=== PATIENT | male | born 1970 | race African-American/Black ===

== ENCOUNTER 2020-12-19 10:00 | Outpatient (RCR) | payer OTHER, SELFPAY ==
--- NOTE | 2020-11-20 08:57 | PTOPEVAL ---
Thank you for referring Bear Rodríguez to [facility] [place].? The patient is scheduled to be seen for therapy? 2x/week for 3 weeks. Please review, sign, date and return this plan of care BEHZAD. I agree with and certify that the following plan of care is medically necessary. Referring Physician Date Attending Provider: Ashley Morrow *PT Outpatient Evaluation Start: 11/20/20 07:33 Freq: Status: Active Protocol: Document 11/20/20 07:35 CAP (Rec: 11/20/20 08:49 CAP [id number]) Therapy Assessment Status Assessment Status Assessment Status Evaluation Outpatient Past Medical History Past Medical History Source of Past Medical History Patient Cardiovascular History Hx Hypercholesterolemia Yes Hx Hypertension Yes Respiratory History Hx Sleep Apnea Yes: CPAP Hx Other Respiratory Disorders Yes: COVID- 10/22/20 Endocrine History Hx Diabetes Yes Evaluation Information Problem Diagnosis COVID Onset 10/22/20 Additional Evaluation Detail Pt is to RTW on 12/02/20 Subjective Information Pt was DX with COVID on Text:As Reported By Patient/ . He did not require Family hospitalization. He reports he has lost~30#. He c/o significant fatigue since the DX. He is limited with household activities due to fatigue. He is slowly regaining his appitite. 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 He has 2 flights of steps to reach his home. C/ O SOB with steps especially with carrying objects. He reports difficulty getting to sleep and staying asleep. He uses a CPAP requiring him to sleep on his back. 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 He currently is not working. His work has to be able to lift pts, manage and set-up equipment. He is on his feet for the full shift. He cancelled his gym membership in May. Prior to January, he was going to the gym 2x/wk for cardio activities. He will return to the gym once
--- NOTE | 2020-12-19 10:41 | PTOPEVAL ---
Thank you for referring Bear Rodríguez to [facility].? Pt has been seen for 7 therapy visits to address limitations related to COVID. He demonstrates improved strength, endurance and tolerance with work or home task. He has reached maximal potential with skilled therapy services at this time. DC skilled PT services. Please review, sign, date and return this plan of care BEHZAD. I agree with and certify that the following plan of care is medically necessary. Referring Physician Date Attending Provider: Ashley Morrow Referring Provider: AminataPT Outpatient Evaluation Start: 11/20/20 07:33 Freq: Status: Active Protocol: Document 12/19/20 10:02 CAP (Rec: 12/19/20 10:34 CAP [id number]) Therapy Assessment Status Assessment Status Assessment Status Discharge Outpatient Past Medical History Past Medical History Source of Past Medical History Patient Cardiovascular History Hx Hypercholesterolemia Yes Hx Hypertension Yes Respiratory History Hx Sleep Apnea Yes: CPAP Hx Other Respiratory Disorders Yes: COVID- 10/22/20 Endocrine History Hx Diabetes Yes Evaluation Information Problem Diagnosis COVID Onset 10/22/20 Additional Evaluation Detail Pt is to RTW on 12/02/20 Pt was DX with COVID on . He did not require hospitalization. 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 Subjective Information He has RTW for 10 hr days, but Query Text:As Reported By Patient/ no always consistently 10 hr Family day. He does report improved endurance with daily activities. He reports improved ability to perform household activities before fatigue. He can perform steps at work without limitations. His denies problems with lift pts, manage and set-up equipment. Pain Assessment Timing of Pain Assessment Timing of Pain Assessment Re-assessment Self Report Self Report Pain Level 0 Pain Score Pain Score 0: Self Report Lower Extremity Muscle Strength Testing General Lower Extremity Strength Gross Lower Extremity Strength hip flex, knee ext and flex, ankle DF: 5/5 hip ext: 5/5 hip abd: 3+/5 left and 4-/5 right Upper Extremity Muscle Strength Testing General Upper Extremity Strength Gross Upper Extremity Strength Comments grossly 5/5 imtiaz
== END 2020-12-19 11:04 | disposition home or self-care (01) ==
LOC: ANHPT 10:00
DX: R53.1 Weakness (principal)
CPT/HCPCS: 97110; 97162; 97530

== ENCOUNTER 2020-12-21 14:17 | Emergency (ER) | payer OTHER, SELFPAY ==
[2020-12-21 14:22] VITALS: BP 144/84; PULSE 94; RESP 16; TEMP 36.8; O2SAT 98; O2SAT 99
--- NOTE | 2020-12-21 14:36 | ED.SKABFB ---
HPI - Skin/Abscess/Foreign Bdy General Chief complaint: Extremity Problem,Nontraumatic Stated complaint: L TOE DISCOLORED Time Seen by Provider: 12/21/20 14:30 Source: patient and RN notes reviewed Mode of arrival: ambulatory Limitations: no limitations History of Present Illness HPI narrative: Patient presents today complaining of a discoloration to his left first toe. Denies any known injury or trauma, however, he states he does have significant diabetic neuropathy in his feet. He noted the discoloration this morning. States he did trim his toenail a few days ago and does not know if this contributed to the discoloration. He does report some mild pain when the area is touched. He has not tried any [id number] treatment prior to arrival. MD complaint: discoloration Related Data Home Medications Medication Instructions Recorded Confirmed atorvastatin 12/21/20 glipizide mg PO 12/21/20 lisinopril 12/21/20 metformin mg 12/21/20 Allergies Allergy/AdvReac Type Severity Reaction Status Date / Time No Known Allergies Allergy Unverified 12/21/20 14:22 Review of Systems Review of Systems: Narrative: CONSTITUTIONAL: Denies body aches, fever, chills, or sweats. EYES: Denies visual changes, redness, or discharge. ENT: Denies rhinorrhea, congestion, sore throat, or otalgia. CARDIOVASCULAR: Denies chest pain, palpitations, or edema. RESPIRATORY: Denies cough or dyspnea. GASTROINTESTINAL: Denies abdominal pain, nausea, vomiting, or diarrhea. GENITOURINARY: Denies dysuria or hematuria. SKIN: Denies rash, itching, or wounds.+ Discoloration of the left first toenail MUSCULOSKELETAL: Denies back pain, joint pain, or myalgia. NEUROLOGIC: Denies headache, numbness, tingling, or weakness. PSYCH: Denies depression or anxiety. [facility] Past Medical History Medical History (Updated 12/21/20 @ 15:22 by Nanette Bhatia, [employer] CLE[employer]ER MECH[employer]IC, ) Diabetes Diabetic neuropathy Hypercholesterolemia Hypertension Sleep apnea Comments At time of signature, I have reviewed and agree with nursing past medical, surgical, social and family history unless otherwise noted. Please see nursing chart for further information. There is no relevant family history pertinent to the presenting complaint Exam Narrative: Exam Narrative: GENERAL: Well-appearing, well-nourished, and in no acute distress. HEAD: Normocephalic, atraumatic. EYES: EOMI. No redness or drainage. Conjunctivae normal. ENT: Mucous membranes pink and moist. NECK: Normal AROM. CHEST: No respiratory distress. EXTREMITIES: Left first toe: Lateral half of the toenail involves a subungual hematoma. Mildly tender to palpation. No surrounding erythema or edema. Distal sensation diminished, but no different than baseline. Capillary refill normal. Pedal pulse normal. Full range of motion of the toe. SKIN: Warm, dry, no rash. Capillary refill normal. Normal skin turgor. NEURO: No focal deficits. Alert and oriented x3. Gait steady. PSYCH: Normal affect. No signs of depression or anxiety. Course Vital Signs Vital signs: Vital Signs Temperature 98.3 F 12/21/20 14:22 Pulse Rate 94 12/21/20 14:22 Respiratory Rate 16 12/21/20 14:22 Blood Pressure 144/84 H 12/21/20 14:22 Pulse Oximetry 98 12/21/20 14:22 Temperature 98.3 F 12/21/20 14:22 Pulse Rate 94 12/21/20 14:22 Respiratory Rate 16 12/21/20 14:22 Blood Pressure 144/84 H 12/21/20 14:22 Pulse Oximetry 99 12/21/20 14:22 Reviewed. Pt has been instructed to follow up with his PCP regarding his elevated blood pressure today. Procedures Nail Trephination Nail Trephination #1: Nail Trephination Date: 12/21/20 Nail Trephination Time: 14:39 Time out: Yes Location (toes): first digit (Left) Sterile prep: betadine Method of drainage: nail cautery Procedure successful: Yes Patient tolerated procedure: well Nail Trephination Comment: Moderate am
== END 2020-12-21 15:01 | disposition home or self-care (01) ==
PROVIDERS: Emergency Provider Nurse Practitioner
DX: S90.212A Contusion of left great toe with damage to nail, initial encounter (principal); X58.XXXA Exposure to other specified factors, initial encounter; E11.42 Type 2 diabetes mellitus with diabetic polyneuropathy; E78.00 Pure hypercholesterolemia, unspecified; I10 Essential (primary) hypertension; G47.30 Sleep apnea, unspecified; Z79.84 Long term (current) use of oral hypoglycemic drugs
CPT/HCPCS: 11740; 99212; G0463

== ENCOUNTER 2021-04-08 10:21 | Outpatient (CLI) | payer OTHER, SELFPAY ==
[2021-04-08 11:05] LABS: Basophils Percent Auto 0.6 % (0.2-1.2); Eosinophils Absolute Auto 0.1 K/mm3 (0-0.3); Eosinophils Percent Auto 2.2 % (0-4.4); Hematocrit 39.1 % (42.0-52.0); Hemoglobin 12.5 g/dL (14.0-18.0); Immature Granulocyte Absolute 0.01 K/mm3 (0.00-0.031); Immature Granulocyte Percent A 0.2 % (0-0.5); Lymphocytes Absolute Auto 1.75 K/mm3 (0.9-3.2); Lymphocytes Percent Auto 35.4 % (18.3-44.2); Mean Corpuscular Hemoglobin 29.1 pg (26-34); Mean Corpuscular Volume 90.9 fl (80-100); Mean Platelet Volume 9.3 fl (7.4-10.4); Monocytes Absolute Auto 0.4 K/mm3 (0.1-0.6); Monocytes Percent Auto 8.1 % (2.6-8.5); Neutrophils Absolute Auto 2.6 K/mm3 (1.3-6.7); Neutrophils Percent Auto 53.5 % (45.5-73.1); Platelet Count Result 196 k/mm3 (150-375); Red Cell Distribution Width 14.2 % (11.5-14.5); White Blood Count 4.9 K/mm3 (4.5-10.0)
[2021-04-08 11:15] LABS: Alanine Aminotransferase 31 U/L (4-50); Albumin Level 4.1 g/dL (3.5-5.1); Alkaline Phosphatase 48 U/L (38-126); Anion Gap 3 mmol/L (8-16); Aspartate Amino Transferase 26 U/L (17-59); Bilirubin,Total 0.7 mg/dL (0.2-1.3); Blood Urea Nitrogen 11 mg/dL (9-20); Calcium 9.3 mg/dL (8.4-10.2); Carbon Dioxide 31 mmol/L (22-30); Chloride 104 mmol/L (98-107); Cholesterol 103 mg/dL (0-200); Estimated Glomerular Filt Rate > 60; Glucose 121 mg/dL (75-110); HDL Direct 28 mg/dL; Potassium 4.4 mmol/L (3.4-5.0); Sodium 138 mmol/L (137-145); Triglycerides 47 mg/dL (<150)
[2021-04-08 11:26] LABS: LDL Cholesterol Direct 62 mg/dL
[2021-04-08 12:14] LABS: MALB Creatinine Ratio < 3.7 mg/g (0-30); Microalbumin Urine Random < 6.0 mg/L (0-16.7)
[2021-04-11 07:52] LABS: C-Peptide 2.62 ng/mL (0.80-3.85)
== END 2021-04-08 10:22 | disposition home or self-care (01) ==
PROVIDERS: Visit Provider Internal Medicine Endocrinology, Diabetes & Metabolism
DX: E11.9 Type 2 diabetes mellitus without complications (principal)
CPT/HCPCS: 36415; 80053; 80061; 82043; 82607; 84443; 84681; 85025

== ENCOUNTER 2021-07-02 14:30 | Outpatient (RCR) | payer OTHER, SELFPAY ==
[2021-04-16 11:00] VITALS: BMI 30.9
[2021-04-16 11:01] VITALS: BMI 30.9
== END 2021-07-15 10:24 | disposition home or self-care (01) ==
LOC: ANHDMC 14:30
DX: E11.42 Type 2 diabetes mellitus with diabetic polyneuropathy (principal); E11.65 Type 2 diabetes mellitus with hyperglycemia; E11.649 Type 2 diabetes mellitus with hypoglycemia without coma; Z71.3 Dietary counseling and surveillance; Z71.89 Other specified counseling
CPT/HCPCS: 97802; G0108; G0109

== ENCOUNTER 2022-03-11 11:36 | Outpatient (CLI) | payer OTHER, SELFPAY ==
[2022-03-11 16:49] LABS: Hemoglobin A1C 6.3 % (<5.7)
[2022-03-11 16:59] LABS: Anion Gap 7 mmol/L (8-16); Blood Urea Nitrogen 14 mg/dL (9-20); Calcium 8.9 mg/dL (8.4-10.2); Carbon Dioxide 26 mmol/L (22-30); Chloride 104 mmol/L (98-107); Cholesterol 117 mg/dL (0-200); Estimated Glomerular Filt Rate > 60; Glucose 127 mg/dL (65-110); HDL Direct 29 mg/dL; Potassium 4.4 mmol/L (3.4-5.0); Sodium 137 mmol/L (137-145); Triglycerides 38 mg/dL (<150)
[2022-03-11 17:10] LABS: LDL Cholesterol Direct 64 mg/dL
[2022-03-11 19:54] LABS: Creatinine Urine 129.7 mg/dL
[2022-03-11 19:56] LABS: MALB Creatinine Ratio 4.7 mg/g (0-30); Microalbumin Urine Random 6.1 mg/L (0-16.7)
== END 2022-03-11 11:37 | disposition home or self-care (01) ==
LOC: ANHWCLAB 11:39
PROVIDERS: Visit Provider Internal Medicine Endocrinology, Diabetes & Metabolism
DX: E11.65 Type 2 diabetes mellitus with hyperglycemia (principal); E78.5 Hyperlipidemia, unspecified
CPT/HCPCS: 36415; 80048; 80061; 82043; 82607; 83036; 84443

== ENCOUNTER 2022-05-13 10:28 | Outpatient (CLI) | payer OTHER, SELFPAY ==
[2022-05-13 11:49] LABS: Prostate Specific Antigen 0.5 ng/mL (< OR = 4.0)
== END 2022-05-13 10:29 | disposition home or self-care (01) ==
LOC: ANHLAB 10:34
DX: Z12.5 Encounter for screening for malignant neoplasm of prostate (principal)
CPT/HCPCS: 36415; 84153

== ENCOUNTER 2022-12-15 11:38 | Outpatient (CLI) | payer OTHER, SELFPAY ==
[2022-12-15 13:30] LABS: Alanine Aminotransferase 36 U/L (6-50); Albumin Level 4.1 g/dL (3.5-5.1); Alkaline Phosphatase 60 U/L (38-126); Anion Gap 6 mmol/L (8-16); Aspartate Amino Transferase 40 U/L (17-59); Bilirubin,Total 0.9 mg/dL (0.2-1.3); Blood Urea Nitrogen 12 mg/dL (9-20); Calcium 8.9 mg/dL (8.4-10.2); Carbon Dioxide 27 mmol/L (22-30); Chloride 103 mmol/L (98-107); Estimated Glomerular Filt Rate > 60; Glucose 147 mg/dL (65-110); HDL Direct 39 mg/dL; LDL Cholesterol Direct 60 mg/dL; Potassium 4.6 mmol/L (3.4-5.0); Sodium 136 mmol/L (137-145); Triglycerides 73 mg/dL (<150)
[2022-12-15 13:33] LABS: Vitamin D 25 Hydroxy 46.8 ng/mL
[2022-12-15 13:37] LABS: Cholesterol 122 mg/dL (0-200)
[2022-12-15 14:06] LABS: Creatinine Urine 89.4 mg/dL
[2022-12-15 14:10] LABS: MALB Creatinine Ratio 9.7 mg/g (0-30); Microalbumin Urine Random 8.7 mg/L (0-16.7); Vitamin B12 > 1000.0 pg/mL (239-931)
== END 2022-12-15 11:39 | disposition home or self-care (01) ==
LOC: ANHWCLAB 11:40
PROVIDERS: Visit Provider Nurse Practitioner Family
DX: E11.65 Type 2 diabetes mellitus with hyperglycemia (principal); E78.5 Hyperlipidemia, unspecified
CPT/HCPCS: 36415; 80053; 80061; 82043; 82306; 82607; 84439; 84443

== ENCOUNTER 2024-02-11 07:02 | Outpatient (CLI) | payer OTHER, SELFPAY ==
--- NOTE | ~2024-02-11 | US_ITS ---
US thyroid INDICATION: Nontoxic goiter TECHNIQUE: Real-time sonographic images of the thyroid gland were obtained. COMPARISON: No prior studies for comparison. FINDINGS: The right thyroid lobe measures 4.9 x 1.8 x 1.8 cm. The left thyroid lobe measures 5.1 x 1 .8 x 1.9 cm. There is normal echotexture and echogenicity throughout the thyroid gland. In the left l obe there is an oval hypoechoic 4 mm mass which is mixed solid and cystic, wider than tall, smoothly marginated without echogenic foci, TR 3. Normal vascular flow is present. IMPRESSION: 1. Left thyroid nodule measuring 4 mm, TR 3, most likely benign. Reviewed, dictated and finalized at location A.
[2024-02-11 08:31] LABS: Alanine Aminotransferase 37 U/L (6-50); Albumin Level 4.2 g/dL (3.5-5.1); Alkaline Phosphatase 63 U/L (38-126); Anion Gap 6 mmol/L (8-16); Aspartate Amino Transferase 35 U/L (17-59); Bilirubin,Total 1.1 mg/dL (0.2-1.3); Blood Urea Nitrogen 16 mg/dL (9-20); Calcium 9.4 mg/dL (8.4-10.2); Carbon Dioxide 27 mmol/L (22-30); Chloride 107 mmol/L (98-107); Cholesterol 120 mg/dL (0-200); Estimated Glomerular Filt Rate > 60; Glucose 153 mg/dL (65-110); HDL Direct 34 mg/dL; Potassium 4.5 mmol/L (3.4-5.0); Sodium 140 mmol/L (137-145); Triglycerides 164 mg/dL (<150)
[2024-02-11 09:23] LABS: Vitamin B12 > 1000.0 pg/mL (239-931)
[2024-02-11 10:28] LABS: Free T4 Free Thyroxine 0.96 ng/mL (0.78-2.19); Vitamin D 25 Hydroxy 41.4 ng/mL
[2024-02-11 11:02] LABS: MALB Creatinine Ratio < 7.1 mg/g (0-30); Microalbumin Urine Random < 6.0 mg/L (0-16.7)
[2024-02-11 12:05] LABS: LDL Cholesterol Direct 68 mg/dL
[2024-02-15 00:26] LABS: Testosterone Total 182 ng/dL (250-1100)
[2024-02-15 13:43] LABS: Testosterone Free 52.8 pg/mL (46.0-224.0)
== END 2024-02-11 07:03 | disposition home or self-care (01) ==
LOC: ANHIMG 07:04
PROVIDERS: Visit Provider Nurse Practitioner Family
DX: E04.1 Nontoxic single thyroid nodule (principal); E11.649 Type 2 diabetes mellitus with hypoglycemia without coma; E78.5 Hyperlipidemia, unspecified; R53.83 Other fatigue; R79.89 Other specified abnormal findings of blood chemistry
CPT/HCPCS: 36415; 76536; 80053; 80061; 82043; 82306; 82607; 84402; 84403; 84439; 84443

== ENCOUNTER 2025-01-12 08:00 | Outpatient (CLI) | payer OTHER, SELFPAY ==
--- OUTSIDE RECORDS SUMMARY | 2025-01-12 08:12 | XMS_ITS | Continuity of Care Document ---
Author Organization [employer] Address [address] [place] [address] Phone Care Team Providers Care Fur Pointer Name Role Phone Acosta Hawkins MD Unavailable Unavailable Allergies, Adverse Reactions, Alerts Substance Reaction Status Criticality No Known Drug Allergies Other Active No I nformation Medications Medication Instructions Dosage Effective Dates (start - stop) Status Comments Trijardy XR 25 mg-5 mg-1,000 mg tablet, extended release take 1 tablet by oral route every day in the morning 1.00 tablet - Active atorvastatin 40 mg tablet TAKE 1 TABLET BY MOUTH ONCE DAILY FOR HYPERCHOLESTEROLEMIA - Active FreeStyle Zach 3 Sensor device use as directed - Active lisinopril 10 mg tablet Take 1 tablet by mouth once daily for HTN - Active Procedures Procedure Date FALL RISK ASSESSMENT DOC'D PRES/ABSN URINE INCON ASSESS FOOT EXAM PERFORMED BASIC METABOLIC PANEL(BMP) HEMOGLOBIN A1C HGA1C, GLYCO LIPID PANEL MICROALBUMIN, QN (URINE) CREATININE, (U-R) ROUTINE VENIPUNCTURE OFFICE [id number] BODY MASS INDEX DOCD SYST BP LT 130 MM HG DIAST BP < 80 MM HG FALL RISK ASSESSMENT DOC'D PRES/ABSN URINE INCON ASSESS SARS-CoV-2/Flu/RSV (all targets) 2023 OFFICE [id number] BODY MASS INDEX DOCD SYST BP LT 130 MM HG DIAST BP < 80 MM HG Pt inelig neg scrn depres FALL RISK ASSESSMENT DOC'D PRES/ABSN URINE INCON ASSESS OFFICE [id number] BODY MASS INDEX DOCD SYST BP LT 130 MM HG DIAST BP < 80 MM HG BP OFFICE/OUTPATIENT VISIT EST OFFICE [id number] BODY MASS INDEX DOCD SYST BP LT 130 MM HG DIAST BP < 80 MM HG FALL RISK ASSESSMENT DOC'D PRES/ABSN URINE INCON ASSESS Pt inelig neg scrn depres OFFICE [id number] BODY MASS INDEX DOCD SYST BP LT 130 MM HG DIAST BP < 80 MM HG BASIC METABOLIC PANEL(BMP) HEMOGLOBIN A1C HGA1C, GLYCO ROUTINE VENIPUNCTURE OFFICE [id number] BODY MASS INDEX DOCD SYST BP LT 130 MM HG DIAST BP < 80 MM HG FALL RISK ASSESSMENT DOC'D PRES/ABSN URINE INCON ASSESS Brief Emotional/Behavioral A ssessment, With Scoring/Doct, Per Stndrd Instrument Clin depression screen doc GENERAL HEALTH PANEL HEMOGLOBIN A1C HGA1C, GLYCO LIPID PANEL MICROALBUMIN, QN (URINE) CREATININE, (U-R) ROUTINE VENIPUNCTURE OFFICE [id number]-[id number] BODY MASS INDEX DOCD SYST BP GE 130 - 139MM HG DIAST BP 80-89 MM HG Kept Appointment No Charge Encounter March TELEPHONE E&M BY A PHYSICIAN; 11-20 EDDIE BINDU Specimen collection for COVID-19, Any So urce BASIC METABOLIC PANEL(BMP) HEMOGLOBIN A1C HGA1C, GLYCO ROUTINE VENIPUNCTURE OFFICE [id number] BODY MASS INDEX DOCD SYST BP GE 130 - 139MM HG DIAST BP >= 90 MM HG Advance Directives Directive Yes / No Effective Date File Name No Information Encounters Encounter Description Practice Location Reason(s) For Visit Diagnoses Date Provider Providers Copied on Encounter [facility], [address], [place], [place], [address] , tel:[phone] [facility] No Information 5 Shruthi Shane. [address], [address], [place], [place], [address], [place]. tel:[phone] [facility], [address], [place], [place], [address] , [place] tel: [phone] [facility] No Information 4 Simon Ren. [address], [address], [place], [place], [address], [place]. tel:[phone] [facility], [address], [place], [place], [address] , [place] tel: [phone] [facility] Obstructive sleep apnea (adult) (pediatric) 4 Cisco Harrington. [address], [address], [place], [place], [address], [place]. tel:[phone] OFFICE [id number]-MXU-IU TAILED [facility], [address], [place], [place], [address] , tel: [phone] [facility] Chronic Conditions (chief complaint) Body mass index [BMI] 30.0-30.9, adultEssential (primary) hypertensionHype rlipidemia, unspecifiedType 2 diabetes mellitus with hyperlipidemiaSl eep apnea, unspecified 4 Shruthi Shane. [address], [address], [place], [place], [address], . tel:[phone] Referring Provider: Acosta Blackburn, [address], [place], [address] . tel:[phone] [employer], [address], [place], [place], [address] , tel: [phone] Shruthi And Sleep apnea, unspecified 4 Shruthi Shane. [address], [address], [place], [place], [address], . tel:[phone] OFFICE NHQPH-ZYG-TD PANDED [facility], [address], [place], [place], [address] , tel: [phone] [facility] multiple complaints (chief complaint)C hronic Conditions (chief complaint) Body mass index [BMI] 30.0-30.9, adultAcute URIType 2 diabetes mellitus with diabetic polyneuropathy, without long-term current use of insulinEssential (primary) hypertension 4 Karen Ho. [address] [place] [address], [address], . tel:[phone] Referring Provider: Acosta Blackburn, [address], [place], [address] . tel:[phone] [employer], [address], [place], [place], [address] , tel:[phone] [facility] No Information 3 Shruthi Shane. [address], [address], [place], [place], [address], . tel:[phone] OFFICE UMMRN-NOM-PY [facility], [address], [place], [place], [address] , tel: [phone] [facility] Chronic Conditions (chief complaint)c hronic conditions (chief complaint) Body mass index [BMI] 29.0-29.9, adultType 2 diabetes mellitus with diabetic polyneuropathy, without long-term current use of insulinEssential (primary) hypertensionHype rlipidemia, unspecifiedColon cancer screening 3 Karen Ho. [address] [place] [address], [address], . tel:[phone] Referring Provider: Acosta Blackburn, [address], [place], [address] . tel:[phone] [employer], [address], [place], [place], [address] , tel: [phone] [facility] Routine eye exam 2 Karen Ho. [address] [place] [address], [place], [place], [address], [place]. tel:[phone] OFFICE/OUTPA TIENT VISIT EST [facility], [address], [place], [place], [address] , tel: [phone] [facility] No Information 2 Shruthi Shane. [address], [address], [place], [place], [address], . tel:[phone] Referring Provider: Acosta Blackburn, [address], [place], [address] . tel:[phone] OFFICE XFYQE-AFB-ZI [facility], [address], [place], [place], [address] , tel: [phone] [facility] Chronic Conditions (chief complaint) Type 2 diabetes mellitus with diabetic polyneuropathy, without long-term current use of insulinEssential (primary) hypertensionHype rlipidemia, unspecifiedBody mass index [BMI] 30.0-30.9, adultScreening due 2 Karen Ho. [address] [facility] [place], [facility] [address], [place], [place], [address], . tel:[phone] Referring Provider: Acosta Blackburn, [address] [facility] [address], [place], [address] . tel:[phone] [facility], [address], [place], [place], [address] , tel: [phone] [facility] No Information 1 Shruthi Shane. [address], [facility] [address], [place], [place], [address], . tel:[phone] [facility], [address], [place], [place], [address] , tel: [phone] [facility] No Information 1 Shruthi Shane. [address], [facility] [address], [place], [place], [address], . tel:[phone] OFFICE BBAZV-RAR-YX [facility], [address], [place], [place], [address] , [place] tel: [phone] [facility] Chronic Conditions (chief complaint) Body mass index (BMI) 30.0-30.9, adultType 2 diabetes mellitus with diabetic polyneuropathy, without long-term current use of insulinHyperlipi demia, unspecifiedEssen tial (primary) hypertensionSlee p apnea, unspecified 1 Pavan Ramirez. [address], [facility] [address], [place], [place], [address], . tel:[phone] Referring Provider: Acosta Blackburn, [address] [facility] [address], [place], [address] . tel:[phone] OFFICE TTQWJ-EFJ-WG [facility], [address], [place], [place], [address] , tel: [phone] [facility] Chronic Conditions (chief complaint) Body mass index (BMI) 30.0-30.9, adultHistory of 2019 novel coronavirus disease (COVID-19)Type 2 diabetes mellitus with diabetic polyneuropathy, without long-term current use of insulinEssential (primary) hypertensionSlee p apnea, unspecifiedHyper lipidemia, unspecifiedDiarr hea, unspecified typeGeneralized weakness 0 Browne Ashley. [address], [place], [place], [address], . [phone] Referring Provider: Acosta Blackburn, [address], [place], [address] . tel:[phone] OFFICE KIAGI-JWI-WJ [facility], [address], [place], [place], [address] , tel: [phone] [facility] Chronic Conditions (chief complaint) Body mass index (BMI) 32.0-32.9, adultType 2 diabetes mellitus with diabetic polyneuropathy, without long-term current use of insulinEssential (primary) hypertensionSlee p apnea, unspecifiedHyper lipidemia, unspecified Sep-2 0 Browne Ashley. [address], [place], [place], [address], . [phone] Referring Provider: Acosta Blackburn, [address], [place], [address] . tel:[phone] [facility], [address], [place], [place], [address] , tel: [phone] [facility] Cough 0 Browne Ashley. [address], [place], [place], [address], . [phone] Referring Provider: Acosta Blackburn, [address], [place], [address] . tel:[phone] TELEPHONE E&M BY A PHYSICIAN; 11-20 MINUTES [facility], [address], [place], [place], [address] , tel: [phone] [facility] Cough 0 Browne Ashley. [address], [place], [address], . tel:[phone] Referring Provider: Acosta Blackburn, [address] [facility] [address], [place], [address] . tel:[phone] [facility], [address] , tel: [phone] [facility] No Information 0 Ivan Dash. [address] [facility] [address], [place], [address], . tel:[phone] Referring Provider: Acosta Blackburn, [address] [place] [address], [place], [address] . tel:[phone] OFFICE VYQOE-GWI-KK [facility], [address] [facility], [place], [place], [address] , tel: [phone] [facility] Chronic Conditions (chief complaint) Type 2 diabetes mellitus without complicationsEss ential (primary) hypertensionHype rlipidemia, unspecifiedBody mass index (BMI) 31.0-31.9, adultSleep apnea, unspecified 9 Hawkinsmckenzie Shane[address], [address], [address], . tel:[phone] Referring Provider: Acosta Blackburn, [address] [place] [address], [place], [address] . tel:[phone] [facility], [facility], [place], [place], [address] , tel: [phone] [facility] Body mass index (BMI) 31.0-31.9, adultEssential (primary) hypertensionType 2 diabetes mellitus without complicationsHyp erlipidemia, unspecifiedSleep apnea, unspecifiedPares thesia 9 Shruthi Shane. [address], [facility] [address], [place], [place], [address], . tel:[phone] Referring Provider: Acosta Blackburn, [address] [facility] [address], [place], [address] . tel:[phone] [employer], [address], [place], [place], [address] , [place] tel: [phone] [facility] Type 2 diabetes mellitus without complication 7 Moncho Kristen. [address], [facility] [address], [place], [place], [address], [place]. tel:[phone] Referring Provider: Kristen Ivan, [facility] [address], [place], [address] . tel:[phone] [employer], [address], [place], [place], [address] , [place] tel: [phone] [facility] CervicalgiaMuscl e crampingUrinary frequencyEssenti al hypertensionType 2 diabetes mellitus without complication 7 Pavan Ramirez. [address], [place], [place], [address], . tel:[phone] Referring Provider: Acosta Blackburn, [address], [place], [address] . tel:[phone] [employer], [address], [place], [place], [address] , [place] tel: [phone] [facility] Body mass index (BMI) 33.0-33.9, adultType 2 diabetes mellitus without complicationEsse ntial (primary) hypertensionSlee p apnea, unspecifiedHyper lipidemia, unspecifiedNeedl e stick, hypodermic, accidental, subsequent encounter 6 Shruthi Shane. [address], [address], [place], [place], [address], [place]. tel:[phone] Referring Provider: Acosta Blackburn, [address], [place], [address] . tel:[phone] [employer], [address], [place], [place], [address] , [place] tel: [phone] Shruthi And Marah Essential hypertension 6 Matthew Dee. [address], [address], [place], [place], [address], . [phone] Referring Provider: Leila Castro, [address] [facility] [address], [place], [address] . tel:[phone] [employer], [address], [place], [place], [address] , tel: [phone] [facility] Unspecified essential hypertensionESOP HAGEAL REFLUXDiabetes mellitus without mention of complication, type II or unspecified type, not stated as uncontrolledDiar rheaHyperlipidem ia LDL goal < 100 4 Matthew Dee. [address], [facility] [address], [place], [address], . tel:[phone] Referring Provider: Acosta Blackburn, [address] [facility] [address], [place], [address] . tel:[phone] [employer], [address], [place], [place], [address] , tel: [phone] [facility] Encounter for TB bhargavi test 3 Hawkinsmckenzie Shane. [address], [address], [address], . tel:[phone] Referring Provider: Acosta Blackburn, [address] [facility] [address], [place], [address] . tel:[phone] [employer], [address], [place], [address] , tel: [phone] [facility] Obesity, unspecifiedLong- term (current) use of other medicationsOther and unspecified hyperlipidemiaDi abetes mellitus without mention of complication, type II or unspecified type, not stated as uncontrolledUnsp ecified essential hypertensionDiab etes mellitus without mention of complication, type II or unspecified type, not stated as uncontrolledOthe r and unspecified hyperlipidemiaUn specified essential hypertensionUnsp ecified sleep apnea 2 Hawkinsmckenzie Shane. [address], [address], [place], [place], [address], . tel:[phone] Referring Provider: Acosta Blackburn, [address], [place], [address] . tel:[phone] [employer], [address], [place], [place], [address] , tel: [phone] [facility] NEED FOR PROPHYLACTIC VACCINATION WITH COMBINED DIPHTHERIA-TETAN US-PERTUSSIS (DTP) (DTAP) VACCINE 2 Shruthi Shane. [address], [address], [place], [place], [address], . tel:[phone] Referring Provider: Acosta Blackburn, [address], [place], [address] . tel:[phone] [employer], [address], [place], [place], [address] , tel: [phone] [facility] Diabetes mellitus without mention of complication, type II or unspecified type, not stated as uncontrolledBeni gn essential hypertensionOthe r and unspecified hyperlipidemiaHe morrhoidOther and unspecified hyperlipidemiaBe nign essential hypertensionUnsp ecified sleep apnea 2 Karenagabriella Rousseau. [address], [address], [place], [place], [address]. tel:[phone] Referring Provider: Acosta Blackburn, [address], [place], [address] . tel:[phone] [employer], [address], [place], [place], [address] , tel: [phone] [facility] ACUTE URI NOS 4-200 9 Conversion Doctor. [address], [place], [address], [place]. [employer], [address], [place], [place], [address] , tel: [phone] [facility] SYNCOPE AND COLLAPSE 6-200 9 Shruthi Shane. [address], [address], [place], [place], [address], . tel:[phone] [employer], [address], [place], [place], [address] , [place] tel: [facility] And Hawkinsvikram Robles LUMBAGO 6-200 9 Shruthi Shane. [address], [address], [place], [place], [address], . tel:[phone] [facility], [address], [place], [place], [address] , [place] tel: [facility] Emiliano DMII WO CMP NT ST UNCNTR 2 6-200 9 Conversion Doctor. [address] [facility], [place], [address], [place]. [facility] [place], [address], [place], [place], [address] , [place] tel: [facility] And Hawkinsvikram Robles DMII RENAL UNCNTRLD Oct-0 8-200 8 Conversion Doctor. [address], [place], [address], [place]. [facility], [address], [place], [place], [address] , [place] tel: Shruthi And Launch LONG-TERM USE MEDS NEC Dec-0 3-200 8 Shruthi Shane. [address], [address], [place], [place], [address], . tel:[phone] [facility], [address], [place], [place], [address] , [place] tel: [facility] Emiliano MALAISE AND FATIGUE NEC Dec-0 3-200 8 Shruthi Shane. [address], [address], [place], [place], [address], . tel:[phone] [facility], [address], [place], [place], [address] , [place] tel: [facility] HYPERLIPIDEMIA NEC/NOSBENIGN HYPERTENSION Dec-0 5-200 5 Shruthi Shane. [address], [address], [place], [place], [address], . tel:[phone] [facility], [address], [place], [place], [address] , [place] tel: [phone] [facility] OBESITY NOS 3-200 5 Hawkinsmckenzie Shane. [address], [address], [place], [place], [address], . tel: [phone] [employer], [address], [place], [place], [address] , tel: [phone] [facility] COMMUNIC DIS CONTACT NEC 7-200 4 Hawkinsmckenzie Shane. [address], [address], [place], [place], [address], . tel: [phone] [facility], [address], [place], [place], [address] , tel:[phone] [facility] ALLERGIC RHINITIS NOS 7- 4 Hawkinsmckenzie Shane. [address], [facility] [address], [place], [place], [address], . tel: [phone] [employer], [address], [place], [place], [address] , tel:[phone] [facility] ESOPHAGEAL REFLUX 1200 2 Hawkinsmckenzie Shane. [address], [address], [place], [place], [address], . tel: [phone] [employer], [address], [place], [place], [address] , tel: [phone] [facility] ABDMNAL PAIN GENERALIZEDSPRAI N LUMBAR REGIONFAM HX-DIABETES MELLITUSOBSERV-A CCIDENT NEC 4-200 2 Hawkinsmckenzie Shane. [address], [address], [place], [place], [address], . tel:[phone] Family History Family Member Type Diagnosis Age At Onset Family h/o Problem (finding) DIABETES MELLITUS Immunizations Vaccine Date Status Comments Pfizer tiffanie-sucrose Bivalent 3 mcg/0.2 mL dosage administered Source: Other Regist ry Fluzone Quad, preservative free, split virus, 0.5mL dosage administered Source: Other Regist ry Tdap administered Source: Other R egistry Td (adult) absorbed and preservative free administered Note: [facility] ; Source: Other Registry Moderna COVID19 Vaccine, 0.5 mL per dose, 2 doses, administered 28 days apart administered Note: [facility] (Work) ; Source: Other Provider Moderna COVID19 Vaccine, 0.5 mL per dose, 2 doses, administered 28 days apart administered Note: work ; Source: Other Provider Fluzone Quad, preservative free, split virus, 0.5mL dosage administered Note: Job ; Source: Other Registry Tdap (Adacel r) administered Source: New Immunization Record Payers Payer name Insurance type Covered republican ID Authoriza tihipolito(s) No Information Social History Type Description Quantity Date Captured Comments Sex Male Smoking Status No Information Chief Complaint And Reason For Visit No Information Reason For Referral Reason For Referral No Information Plan Of Treatment Date Type Action Status Goal Dietary manageme nt education, guidance, and counseling completed Goal Dietary manageme nt education, guidance, and counseling completed Goal Dietary manageme nt education, guidance, and counseling completed Goal Dietary manageme nt education, guidance, and counseling completed Goal Dietary manageme nt education, guidance, and counseling completed Goal Dietary manageme nt education, guidance, and counseling completed Goal Dietary manageme nt education, guidance, and counseling completed Goal Dietary manageme nt education, guidance, and counseling completed Referral Ordered: [facility] (related to Sleep apnea, unspecified) ordered Referral Referred To: [facility] Ordered: Referrals: [facility]. Evaluate and treat - Level 2 ordered Referral Ordered: [facility] (related to Sleep apnea, unspecified) ordered Referral Referred To: [facility] Ordered: Referrals: [facility]. Evaluate and treat - Level 2 ordered Referral Ordered: EYE EXAM ESTABLISHED PAT ordered Referral Referred To: Physical Therapy Ordered: Referrals: Physical Therapy. Evaluation/diagnostic/treatment - Level 3 ordered Appointment Bear Rodríguez BOOKED Patient Education Neck: Exercises complet ed History Of Present Illness Encounter Date Complaint History Of Prese nt Illness Chronic Conditions *See Chronic Conditions HPI multiple complaints Symptoms sta rted yesterday. Pt reports pain in his teeth that then spread to his occipital area of his head. After returning from work, felt worse. Fatigued, chills, aches, KARIMI, weakness, loss of appetite. Pt did an at home COVID test and it was negative. Temps last evening - 100.4, 99.2. Took tylenol for fever, No additional OTC meds. Denies cough, SOB, wheezing, chest pain. Has had various sick co-workers in the last few weeks, but no one at home has been sick. Chronic Conditions *See Chronic Conditions HPI Chronic Conditions *See Chronic Conditions HPI chronic conditions *See Chronic Conditions [facility] Chronic Conditions *See Chronic Conditions [facility] Chronic Conditions *See Chronic Conditions [facility] Chronic Conditions *See Chronic Conditions [facility] Chronic Conditions *See Chronic Conditions [facility] Chronic Conditions *See Chronic Conditions HPI Functional Status Date Functional Assessmen t No Information Instructions Date Instruction Additional Infor kristi Check HGA1C, foot ex am and microalbumin today.Continue present medical regimen.Wear sturdy shoes when ambulating.Maintain a diet low in concentrated sugars.Pt will continue following with Residential Field Manager.Status: Requires more self-management coaching. Goals: Your goal is to reduce risks associated with your diabetes. Related to Type 2 diabetes mellitus with hyperlipidemia Continue on statin t herapy.Maintain a low cholesterol diet and exercise.Check lipid panel. Related to Hyperlipidemia, unspecified Patient would benefi t from a new CPAP machine due to this condition.His quality of sleep and overall health is improved with usage of this device.We will help arrange for patient to get new CPAP machine and equipment through Provider [facility]/[employer] Qire.F [phone] Related to Sleep apnea, unspecified Continue current med ication and maintain a low salt diet. Eat a heart healthy diet and avoid added salt, high sodium foods.Exercise daily by walking as tolerated. Related to Essential (primary) hypertension Maintain a healthy l ifestyle with diet and exercise.Charting performed by Brinda Campbell acting as scribe for Dr. Acosta Hawkins M.D whom has received and agree with the documentation. Related to Body mass index [BMI] 30.0-30.9, adult Weight monitoring Related to Bod y mass index (BMI) 30.0-30.9, adult Disease prevention Dietary management e ducation, guidance, and counseling Related to Body mass index (BMI) 30.0-30.9, adult Continue current med icationsOccasionally monitor your blood pressure and notify the office for 2 or more readings greater than 140/90recommend low sodium diet Related to Essential (primary) hypertension Please have lab send us copy of labs that are scheduled in January.continue current medicationsfollow up with assembly associate as scheduled Related to Type 2 diabetes mellitus with diabetic polyneuropathy, without long-term current use of insulin likely viralCheck CO VID, Flu, RSVrecommend tylenol extra strength 2 tabs every 6 hrs as needed for fever or painmay use coricidin HBP products for cough or congestion if neededStart fluticasone nasal spray 2 sprays each nare once a daymay use saline nasal spray as needed for nasal congestionif no improvement in symptoms by end of the week, notify the office Related to Acute URI Medication management Dietary management e ducation, guidance, and counseling Related to Body mass index (BMI) 30.0-30.9, adult Weight monitoring Related to Bod y mass index (BMI) 30.0-30.9, adult Maintain a regular c ardiovascular exercise program such as walking for 30 min a day or as toleratedrecommend diet with whole grains and vegetables, lean proteins and reduced concentrated sweets and starches that is low in fat and sodium.Recommend increasing water intake throughout the day while at work Related to Body mass index [BMI] 29.0-29.9, adult Pt reports his danay parham had polyps removed on colonoscopies, he does not know if they were pre-cancerous or not. Colonoscopy recommended for colon cancer screening--screening recommendations indicate starting at 50 yrs of ageRecommend calling insurance regarding where you can have colonoscopy--If able, I recommend Dr Parra or Dr Brothers for GI [phone] Related to Colon cancer screening continue current med icationsrecommend low sodium, low fat dietrecommend 30 min of exercise daily with activities such as walking Related to Hyperlipidemia, unspecified Continue current med icationsOccasionally monitor your blood pressure and notify the office for 2 or more readings greater than 140/90recommend low sodium dietrequest lab records Related to Essential (primary) hypertension continue current med icationswill [facility] Field Manager as directed for medication adjustments/additionscall our office for any questions or concernsRecommend annual eye examrecommend wearing sturdy shoes whenever out of bed Related to Type 2 diabetes mellitus with diabetic polyneuropathy, without long-term current use of insulin Dietary management e ducation, guidance, and counseling Related to Body mass index (BMI) 29.0-29.9, adult Weight monitoring Related to Bod y mass index (BMI) 29.0-29.9, adult Urinary Incontinence Medication management Fall Risk Prevention Check PSA Related to Scree uri due Continue atorvastati nrequest lab recordrecommend low fat, low sodium diet Related to Hyperlipidemia, unspecified Request Lab datacont inue current medicationsfollow up with assembly associate as directed Status: Requires more self-management coaching. Goals: Your goal is to reduce risks associated with your diabetes. Related to Type 2 diabetes mellitus with diabetic polyneuropathy, without long-term current use of insulin Monitor your BP occa sionally, at the calmest part of the day. Call for 2 readings of >140/90. Follow a heart healthy diet, avoid added salt, high sodium foods, and exercise daily by walking as tolerated. Related to Essential (primary) hypertension Dietary management e ducation, guidance, and counseling Related to Body mass index (BMI) 30.0-30.9, adult Medication management Weight monitoring Related to Bod y mass index (BMI) 30.0-30.9, adult Maintain healthy eat ing choices and exercise as tolerated Related to Body mass index (BMI) 30.0-30.9, adult Continue using CPAP machine. Contact office with any further questions or concerns. Related to Sleep apnea, unspecified Continue blood press ure medicationsAvoid eating high sodium foods and eat a heart healthy diet. Related to Essential (primary) hypertension Continue Atorvastatin Related to Hyperlipidemia, unspecified Continue your same d iabetes medicationFollow-up with Endo in March 2021 and PodiatristContinue education with DietitianConcepción MIRANDA 2x a day.F/u in 6 monthsStatus: Requires more self-management coaching. Goals: Your goal is to be active. Goals: Your goal is to schedule and keep an eye appointment by your next follow-up visit. Goals: Your goal is to manage your medicine. Goals: Your goal is to work on healthy eating habits. Related to Type 2 diabetes mellitus with diabetic polyneuropathy, without long-term current use of insulin Weight monitoring Related to Bod y mass index (BMI) 30.0-30.9, adult Dietary management e ducation, guidance, and counseling Related to Body mass index (BMI) 30.0-30.9, adult See plan #5 Related to Diarr hea, unspecified type See #5 Related to Gener alized weakness Patient agrees [facility] 6 visitsRX for PT given to the patient for generalized weaknessMay Take OTC Imodium as directed as needed for diarrheaEncourage to push fluids will check BMP today Related to History of 2019 novel coronavirus disease (COVID-19) Continue Atorvastatin Related to Hyperlipidemia, unspecified Continue using CPAP machine [place] Related to Sleep apnea, unspecified Continue your same d iabetes medicationWill check A1c and BMP todayWill order Zach sensor systemWear sturdy shoesMonitor BS 2x a dayWill consider refer t Residential Field Manager if A1c remains >9.0 Related to Type 2 diabetes mellitus with diabetic polyneuropathy, without long-term current use of insulin Continue blood press ure medicationsAvoid eating high sodium foods and eat a heart healthy diet. Related to Essential (primary) hypertension Weight monitoring Related to Bod y mass index (BMI) 30.0-30.9, adult Dietary management e ducation, guidance, and counseling Related to Body mass index (BMI) 30.0-30.9, adult Maintain healthy eat ing choices and exercise as tolerated Related to Body mass index (BMI) 32.0-32.9, adult Continue your same d iabetes medication Monofilament foot exam completed today. Follow low carb and concentrated sweets diet. Stay with an exercise program Monitor BS fasting in the a.m. and 30 minutes before the evening meal. Goal of blood sugar 100-150. Wear sturdy shoes at all times. Monitor your feet nightly for bruising or nonhealing sores.Contact the office with persistent elevated BS >150 in the morning and 180 after meals Goals: Your goal is to schedule and keep an eye appointment by your next follow-up visit. Goals: Your goal is to manage your medicine. Goals: Your goal is to be active. Goals: Your goal is to work on healthy eating habits. Goals: Your goal is to reduce risks associated with your diabetes. Goals: Your goal is to monitor your diabetes. Related to Type 2 diabetes mellitus with diabetic polyneuropathy, without long-term current use of insulin We will check Lipid panel today. continue on statin therapy at this time.Avoid eating fried fatty foods. Related to Hyperlipidemia, unspecified pt agrees to have hi s DME services to assess his CPAPContinue using CPAP machine. Contact office with any further questions or concerns. Related to Sleep apnea, unspecified Continue Lisinopril Avoid eating high sodium foods and eat a heart healthy diet. Related to Essential (primary) hypertension Dietary management e ducation, guidance, and counseling Related to Body mass index (BMI) 32.0-32.9, adult Weight monitoring Related to Bod y mass index (BMI) 32.0-32.9, adult We will continue to monitor Lipid Panel.Patient is to continue with present cholesterol medication.Maintain a low cholesterol diet and increase physical activity. Related to Hyperlipidemia, unspecified Patient encouraged t o maintain a healthy diet and exercise as tolerated.We will follow up with patient in 6 months, sooner if needed.Charting performed by Brinda Campbell acting as scribe for Dr. Acosta Hawkins M.D whom has received and agree with the documentation. Related to Body mass index (BMI) 31.0-31.9, adult We will repeat patie nt blood pressure today.Changes may be made base on F/U reading.Avoid eating high sodium foods and eat a heart healthy diet. Related to Essential (primary) hypertension Continue using CPAP machine. Contact office with any further questions or concerns. Related to Sleep apnea, unspecified We will check A1C to day.The patient encouraged to moderate the amount of carbohydrate intake to help control his diabetes.Also suggest patient to set an appointment to see our Japanese Tutor. We will help with this information.Pt. to wear sturdy shoes when ambulating.Status: Not meeting treatment plan goals. Goals: Your goal is to work on healthy coping habits.Your goal is to manage your medicine.Your goal is to reduce risks associated with your diabetes. Related to Type 2 diabetes mellitus without complications Exercise Weight monitoring Related to Bod y mass index (BMI) 31.0-31.9, adult Dietary management e ducation, guidance, and counseling Related to Body mass index (BMI) 31.0-31.9, adult Assessments Type Assessment Date No Information Patient Care Teams Name Effective Dates (start - stop) Status Members No Information
--- OUTSIDE RECORDS SUMMARY | 2025-01-12 08:12 | XMS_ITS | Clinical Summary ---
Author Organization [facility] [employer] Address [address] [place] [address] Care Team Providers Care Boat Canvas Maker And Installer Name Role Phone Acosta Hawkins MD Primary Care Provider [phone] Source Comments [facility] [employer],non-owned Affiliates and Associated Physician Practices is amultiple site organization consisting of ambulatory clinics and hospital sitesin [place], [place], [place] and [place]. This disclosure is being madepursuant to the Care Everywhere program and may not contain all information available regarding this patient. Last updated 18.[facility] [employer] Allergies No known active allergies Medications * Be aware that medications may not be up to date on this document. Alwaysverify current medications with the patient. Medication Sig Dispensed Refills Start Date End Date Status atorvastatin (Lipitor) 40 MG tablet 03/24/2023 Active lisinopril (Prinivil; Zestril) 10 MG tablet 03/22/2023 Act geri metFORMIN (Glucophage) 1000 MG tablet 03/21/2023 Active Multiple Vitamins-Minerals (One Daily For Men/Lycopene) TABS Take 1 (one) tablet by mouth once daily 01/11/2023 Active Social History Tobacco Use Types Packs/Day Years Used Date Smoking Tobacco: Never Smokeless Tobacco: Never Alcohol Use Standard Drinks/Week Comments Never 0 (1 standard drink = 0.6 oz pur e alcohol) Sex and Gender Information Value Date Recorded Sex Assigned at Not on file Gender Identity Not on file Sexual Orientation Not on file Last Filed Vital Signs Vital Sign Reading Time Taken Comments Blood Pressure 141/89 08/03/2023 9:46 AM CDT Pulse 92 08/03/2023 9:46 AM CDT Temperature 36.6 C (97.8 F) 08/03/2023 9:25 AM CDT Respiratory Rate 19 08/03/2023 9:46 AM CDT Oxygen Saturation 100% 08/03/2023 9:48 AM CDT Inhaled Oxygen Concentration - - Weight 106.6 kg (235 lb) 08/03/2023 7:49 AM CDT Height 185.4 cm (6' 1 ) 08/03/2023 7:49 AM CDT Body Mass Index 31 08/03/2023 7:49 AM CDT Plan of Treatment Health Maintenance Due Date Last Done Comments COLOGUARD (AGES 45-75) - COL ON CA SCREENING 1972 CT COLONOGRAPHY - COLON CA SCREENING 1972 FIT - COLON CA SCREENING 1972 FLEX SIG - COLON CA SCREENING 1972 HIV SCREENING 1987 HEPATITIS C SCREENING 05/04/1990 DTAP/TDAP/TD VACCINES (1 - Tdap) 1991 HEPATITIS B VACCINE (1 of 3 - 19+ 3-dose series) 1991 PNEUMOCOCCAL VACCINE 50+ (1 of 1 - PCV) 2022 ZOSTER VACCINE (1 of 2) 2022 COVID-19 VACCINE ( - 2023-2 5 season) 2024 INFLUENZA VACCINE (#1) 2024 DEPRESSION SCREENING 11/22/2024 COLON MONITORING 08/03/2033 08/03/2023, 08/03/2023 COLONOSCOPY - COLON CA SCREENING 08/03/2033 08/03/2023, 08/03/2023 Colorectal Cancer Screening 08/03/2033 HIB VACCINE Aged Out No longer eligi ble based on patient's age to complete this topic HPV VACCINE Aged Out No longer eligi ble based on patient's age to complete this topic MENINGOCOCCAL (Group B) VACCINE Aged Out No longer eligible b ased on patient's age to complete this topic MENINGOCOCCAL VACCINE Aged Out No nette anca eligible based on patient's age to complete this topic PNEUMOCOCCAL VACCINE Aged Out No long er eligible based on patient's age to complete this topic Procedures Procedure Name Priority Date/Time Associated Diagnosis Comments ENDOSCOPY, COLON, SCREENING Routine 08/03/2023 7:59 AM CDT Screen for colon cancer from Last 3 Months or Most Recently Relevant to Health Maintenance Results * ENDOSCOPY, COLON, SCREENING (08/03/2023 7:59 AM CDT) Report Endoscopy POC _ Patient Name: Bear Rodríguez Procedure Date: 08/03/2023 7:59 AM Date of : 1970 Admit Type: Outpatient Age: 53 Gender: Male Attending MD: Francis Kemp MD, [id number] _ Procedure: Colonoscopy Indications: Screening for colorectal malignant neoplasm, This is the patient's first colonoscopy Providers: Francis Kemp MD (Doctor) Referring MD: Acosta Hawkins MD (Referring MD) Medicines: Monitored Anesthesia Care Complications: No immediate complications. _ Estimated Blood Loss: Estimated blood loss: none. Procedure: Pre-Anesthesia Assessment: - Prior to the procedure, a History and Physical was performed, and patient medications and allergies were reviewed. The patient is competent. The risks and benefits of the procedure and the sedation options and risks were discussed with the patient. All questions were answered and informed consent was obtained. Patient identification and proposed procedure were verified by the physician, the nurse and the childcare aide in the procedure room. Mental Status Examination: alert and oriented. Airway Examination: normal oropharyngeal airway and neck mobility. Respiratory Examination: clear to auscultation. CV Examination: normal. Prophylactic Antibiotics: The patient does not require prophylactic antibiotics. Prior Anticoagulants: The patient has taken no anticoagulant or antiplatelet agents. ASA Grade Assessment: II - A patient with mild systemic disease. After reviewing the risks and benefits, the patient was deemed in satisfactory condition to undergo the procedure. The anesthesia plan was to use monitored anesthesia care (MAC). Immediately prior to administration of medications, the patient was re-assessed for adequacy to receive sedatives. The heart rate, respiratory rate, oxygen saturations, blood pressure, adequacy of pulmonary ventilation, and response to care were monitored throughout the procedure. The physical status of the patient was re-assessed after the procedure. After I obtained informed consent, the scope was passed under direct vision. Throughout the procedure, the patient's blood pressure, pulse, and oxygen saturations were monitored continuously. The Colonoscope was introduced through the anus and advanced to the cecum, identified by appendiceal orifice and ileocecal valve. The colonoscopy was performed without difficulty. The patient tolerated the procedure well. The quality of the bowel preparation was excellent. The ileocecal valve, appendiceal orifice, and rectum were photographed. Findings: The digital rectal exam was normal. Pertinent negatives include no palpable rectal lesions. A 7 mm polyp was found in the proximal rectum. The polyp was flat. The polyp was removed with a hot snare. Resection and retrieval were complete. To prevent bleeding post-intervention, one hemostatic clip was successfully placed. There was no bleeding at the end of the procedure. The rectum, descending colon, transverse colon, ascending colon, cecum, appendiceal orifice and ileocecal valve appeared normal. Sigmoid diverticulosis. Small internal hemorrhoids noted in retroflexion. _ Impression: - One 7 mm polyp in the proximal rectum, removed with a hot snare. Resected and retrieved. Clip was placed. - The rectum, descending colon, transverse colon, ascending colon, cecum, ileocecal valve and appendiceal orifice are normal. - A few diverticulosis are noted in the sigmoid colon. - Small internal hemorrhoids Recommendation: - Await pathology results. - Repeat colonoscopy in 5 years for surveillance if polyp is adenomatous. - Return to primary care physician as previously scheduled. - High fiber diet indefinitely. - Continue present medications. - Patient has a contact number available for emergencies. The signs and symptoms of potential delayed complications were discussed with the patient. Return to normal activities tomorrow. Written discharge instructions were provided to the patient. Procedure Code(s): --- Professional --- 19750, Colonoscopy, flexible; with removal of tumor(s), polyp(s), or other lesion(s) by snare technique --- Technical --- 88980, Colonoscopy, flexible; with removal of tumor(s), polyp(s), or other lesion(s) by snare technique Diagnosis Code(s): --- Professional --- Z12.11, Encounter for screening for malignant neoplasm of colon D12.8, Benign neoplasm of rectum --- Technical --- Z12.11, Encounter for screening for malignant neoplasm of colon D12.8, Benign neoplasm of rectum CPT copyright 2020 [employer]. All rights reserved. The codes documented in this report are preliminary and upon inventory control associate review may be revised to meet current compliance requirements. Dr. Francis Kemp MD Francis Kemp MD 08/03/2023 9:23:35 AM This report has been signed electronically. Number of Addenda: 0 Note Initiated On: 08/03/2023 7:59 AM [facility] 08/03/2023 7:59 AM CDT Francis Kemp MD GI PROCEDURE ORDERA [facility] [place] [address] from Last 3 Months or Most Recently Relevant to Health Maintenance Care Teams Boat Canvas Maker And Installer Relationship Specialty Start Date End Date Acosta Hawkins MD [address] [place] [address] [address] [place], [place] [id number] PCP - General 11/28/08
--- OUTSIDE RECORDS SUMMARY | 2025-01-12 08:12 | XMS_ITS | Referral Summary ---
Author Organization [facility] [employer] Address [address] [place] [address] Care Team Providers Care Trainmaster Name Role Phone Acosta Hawkins MD Primary Care Provider [phone] Source Comments [facility] [employer],non-owned Affiliates and Associated Physician Practices is amultiple site organization consisting of ambulatory clinics and hospital sitesin [place], [place], [place] and [place]. This disclosure is being madepursuant to the Care Everywhere program and may not contain all information available regarding this patient. Last updated 18.[facility] [employer] Allergies No known active allergies Medications * [...] 08/03/2023 7:49 AM CDT Plan of Treatment Not on file Procedures Procedure Name Priority Date/Time Associated Diagnosis [...] Gender: Male Attending MD: Francis Kemp MD, [id number] _ Procedure: Colonoscopy Indications: Screening for colorectal [...] by the physician, the nurse and the top stop attacher in the procedure room. Mental Status Examination: [...] the patient. Procedure Code(s): --- Professional --- 68841, Colonoscopy, flexible; with removal of tumor(s), polyp(s), or other lesion(s) by snare technique --- Technical --- 78878, Colonoscopy, flexible; with removal of tumor(s), polyp(s), or other lesion(s) by snare technique Diagnosis Code(s): --- Professional --- Z12.11, Encounter for screening for malignant neoplasm of colon D12.8, Benign neoplasm of rectum --- Technical --- Z12.11, Encounter for screening for malignant neoplasm of colon D12.8, Benign neoplasm of rectum CPT copyright 2020 [employer]. All rights reserved. The codes documented in this report are preliminary and upon medical record coder review may be revised to meet current compliance requirements. Dr. Francis Kemp MD Francis Kemp MD 08/03/2023 9:23:35 AM This report has been signed electronically. Number of Addenda: 0 Note Initiated On: 08/03/2023 7:59 AM [facility] 08/03/2023 7:59 AM CDT Francis Kemp MD GI PROCEDURE ORDERA AVS Performing Organization Address City/State/[facility] Co de Phone Number [place] [address] from Last 3 Months or Most Recently Relevant to Health Maintenance Care Teams Trainmaster Relationship Specialty Start Date End Date Acosta Hawkins MD [address] [place] [address] [address] [place] [address] PCP - General 11/28/08
--- OUTSIDE RECORDS SUMMARY | 2025-01-12 08:12 | XMS_ITS | Patient Health Summary ---
Author Organization [facility] Address [address] [place] [address] Care Team Providers Care Computer Bookkeeper Name Role Phone Avelino Hawkins MD Primary Care Provider [phone] Note from [facility],non-owned Affiliates and Associated Physician Practices is amultiple site organization consisting of ambulatory clinics and hospital sitesin [place], [place], [place] and [place]. This disclosure is being madepursuant to the Care Everywhere program and may not contain all information available regarding this patient. Last updated 18.[facility] Allergies No known active allergies Medications * Be aware that medications may not be up to date on this document. Alwaysverify current medications with the patient. * atorvastatin (Lipitor) 40 MG tablet(Started 03/24/2023) * lisinopril (Prinivil; Zestril) 10 MG tablet(Started 03/22/2023) * metFORMIN (Glucophage) 1000 MG tablet(Started 03/21/2023) * Multiple Vitamins-Minerals (One Daily For Men/Lycopene) TABS(Started 01/11/2023) Take 1 (one) tablet by mouth once daily Social History Tobacco Use Types Packs/Day Years [...] Mass Index 31 08/03/2023 7:49 AM CDT Procedures * PATHOLOGY TISSUE EXAM (STL)(Performed 08/03/2023) Performed for Diagnosis unknown * PA COLOREC CANC SCRN,SCR COLONOSCOPY+BE(Performed 08/03/2023) * ENDOSCOPY, COLON, SCREENING(Performed 08/03/2023) Performed for Screen for colon cancer * XR LUMBAR SPINE 4VW OR MORE(Performed 12/11/2008) Performed for Unspecified Backache Results * PATHOLOGY TISSUE EXAM (STL) (08/03/2023 9:20 AM CDT) Case Report Surgical Pathology Report Case: [id number] Authorizing Provider: Francis Kemp MD Collected: 08/03/2023 09:20 AM Ordering Location: [facility] Received: 08/03/2023 10:17 AM Pathologist: Doreen Aguero MD Specimen: Polyp Rectal 08/04/2023 2:21 PM CDT [facility] Final Diagnosis Rectal polyp, biopsy: -- Hyperplastic polyp 08/04/2023 2:21 PM CDT [facility] Clinical History The patient is a 53-year-old man with a 7 mm polyp in the rectum. 08/04/2023 2:21 PM CDT [facility] Gross Description Received in formalin labeled with patient's name and rectal polyp is a polypoid fragment of gr tissue measuring 5 x 3 mm. Submitted entirely in cassette A1. 08/04/2023 2:21 PM CDT [facility] Microscopic Description Microscopic evaluation supports the diagnosis. 08/04/2023 2:21 PM CDT [facility] Disclaimer All histochemical and/or immunohistochemical results are interpreted with controls that demonstrate appropriate staining reactions before reporting results. Note on use of immunocytochemistry reagents: This test was developed and its performance characteristic determined by [facility], Department of Laboratory Medicine. It has not been cleared or approved by the U.S. Food and Drug Administration (FDA). The FDA has determined that such clearance or approval is not necessary. The test is used for clinical purpose. It should not be regarded as investigational or for research. This laboratory is certified to perform high complexity testing. The performance characteristics of the IHC/SEYMOUR assays have been validated on formalin-fixed paraffin embedded tissues only. The assays have not been validated on decalcified tissues. Results should be interpreted with caution. 08/04/2023 2:21 PM CDT [facility] Embedded Images 08/04/2023 2:21 PM CDT [facility] Pathology/Cytolo gy RECTAL POLYP / Unknown 08/03/2023 9:20 AM CDT 08/03/2023 10:17 AM CDT Francis Kemp MD LAB - PATHOLOGY/CYT OLOGY ORDERABLES [facility] [address] [place] [address] * ENDOSCOPY, COLON, SCREENING (08/03/2023 7:59 AM CDT) Report Endoscopy POC _ Patient Name: Bear Rodríguez Procedure Date: 08/03/2023 7:59 AM Date of : 1970 Admit Type: Outpatient Age: 53 Gender: Male Attending MD: Francis Kemp MD, [id number] _ Procedure: Colonoscopy Indications: Screening for colorectal malignant neoplasm, This is the patient's first colonoscopy Providers: Francis Kemp MD (Doctor) Referring MD: Avelino Hawkins MD (Referring MD) Medicines: Monitored Anesthesia [...] by the physician, the nurse and the digital x ray service engineer in the procedure room. Mental Status Examination: [...] the patient. Procedure Code(s): --- Professional --- 55488, Colonoscopy, flexible; with removal of tumor(s), polyp(s), or other lesion(s) by snare technique --- Technical --- 50555, Colonoscopy, flexible; with removal of tumor(s), polyp(s), or other lesion(s) by snare technique Diagnosis Code(s): --- Professional --- Z12.11, Encounter for screening for malignant neoplasm of colon D12.8, Benign neoplasm of rectum --- Technical --- Z12.11, Encounter for screening for malignant neoplasm of colon D12.8, Benign neoplasm of rectum CPT copyright 2020 [employer]. All rights reserved. The codes documented in this report are preliminary and upon member of the legislative assembly review may be revised to meet current compliance requirements. Dr. Francis Kemp MD Francis Kemp MD 08/03/2023 9:23:35 AM This report has been signed electronically. Number of Addenda: 0 Note Initiated On: 08/03/2023 7:59 AM [facility] 08/03/2023 7:59 AM CDT Francis Kemp MD GI PROCEDURE ORDERA [facility] Organization Address City/State/ZIP Co de Phone Number [facility] [place] [address] * XR LUMBAR SPINE 4+ VW (12/11/2008 10:30 AM DRY WALL INSTALLATIONS MECHANIC) Anatomical Region Laterality Modality Spine Other 12/11/2008 10:3 0 AM DRY WALL INSTALLATIONS MECHANIC Narrative 12/11/2008 11:18 AM DRY WALL INSTALLATIONS MECHANIC Indication- Low back pain Four views and lumbar spine including AP, lateral and 2 oblique show normal alignment. No fracture is seen. No dislocation is evident. Impression- No fracture. Read By- NANETTE HODGES M.D. Released By- NANETTE HODGES M.D. Released Date Time- 12/11/08 1118 [employer]- KASANDRA Kingsley - AVELINO HAWKINS- AVELINO HAWKINS REF- CON- PCP- AVELINO HAWKINS SCP- Procedure Note Nanette Hodges - 12/11/2008 Indication- Low back pain Four views and lumbar spine including AP, lateral and 2 oblique show normal alignment. No fracture is seen. No dislocation is evident. Impression- No fracture. Read By- NANETTE HODGES M.D. Released By- NANETTE HODGES M.D. Released Date Time- 12/11/08 1118 [employer]- KASANDRA Kingsley ADM- AVELINO HAWKINS ATT- AVELINO HAWKINS REF- CON- PCP- AVELINO HAWKINS SCP- Avelino Hawkins MD DIAGNOSTIC IMAGING [facility] Care Teams Computer Bookkeeper Relationship Specialty Start Date End Date Avelino Hawkins MD [address] [address] PCP - General 11/28/08
[2025-01-12 09:01] LABS: Alanine Aminotransferase 37 U/L (6-50); Albumin Level 4.2 g/dL (3.5-5.1); Alkaline Phosphatase 55 U/L (38-126); Anion Gap 7 mmol/L (4-12); Aspartate Amino Transferase 29 U/L (17-59); Bilirubin,Total 0.7 mg/dL (0.2-1.3); Blood Urea Nitrogen 22 mg/dL (9-20); Carbon Dioxide 27 mmol/L (22-30); Chloride 105 mmol/L (98-107); Estimated Glomerular Filt Rate > 60; Glucose 140 mg/dL (65-110); Potassium 4.8 mmol/L (3.4-5.0); Sodium 139 mmol/L (137-145)
[2025-01-13 05:13] LABS: Sex Hormone Binding Globulin 9 nmol/L (10-50)
[2025-01-18 14:02] LABS: Testosterone Total 188 ng/dL (250-1100)
[2025-01-18 16:43] LABS: Testosterone Free 57.4 pg/mL (46.0-224.0)
== END 2025-01-12 08:01 | disposition home or self-care (01) ==
LOC: ANHLAB 08:05
PROVIDERS: Visit Provider Nurse Practitioner Family
DX: R79.89 Other specified abnormal findings of blood chemistry (principal); E04.9 Nontoxic goiter, unspecified; E11.649 Type 2 diabetes mellitus with hypoglycemia without coma; E78.5 Hyperlipidemia, unspecified; E11.65 Type 2 diabetes mellitus with hyperglycemia; R53.83 Other fatigue
CPT/HCPCS: 36415; 80053; 82607; 84270; 84402; 84403

== ENCOUNTER 2025-01-15 17:20 | Emergency (ER) | payer OTHER, SELFPAY ==
[2025-01-15 17:34] VITALS: BP 135/80; PULSE 77; RESP 16; TEMP 36.6; O2SAT 100
--- NOTE | 2025-01-15 17:45 | ED_ITS ---
HPI - Skin/Abscess/Foreign Bdy General Chief complaint: Skin/Abscess/Foreign Body Stated complaint: Blisters Time Seen by Provider: 01/15/25 17:40 Source: patient Mode of arrival: ambulatory Limitations: no limitations History of Present Illness HPI narrative: Bear is a 54 year old male patient presenting to the clinic today with c/o penile sore to the right lateral side of the head of his penis x 2 weeks. Noti thu some stinging to the area and some discomfort when the area rubs against his clothing. Denies any concern for STI. No history if genital herpes. No drainage. No fever or testicle pain. Does have 2 other blister like lesions just below ulcerated lesion. History of diabetes. 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 Related Data Home Medications ?Medication ?Instructions ?Recorded ?Confirmed ?Last Taken ?Type lisinopril 10 mg tablet 10 mg PO DAILY 12/21/20 01/15/25 Unknown History complete mutli vitamin 05/04/22 01/15/25 Unknown History Allergies Allergy/AdvReac Type Severity Reaction Status Date / Time No Known Allergies Allergy Verified 01/15/25 17:30 Review of Systems Review of Systems: Pertinent positives per HPI. Patient denies any fever, chills, rash, headache, visual changes, dizziness, cough, runny nose, sore throat, shortness of breath, chest pain, palpitations, nausea, vomiting, diarrhea, constipation, abdominal pain, or any urinary issues. [facility] Past Medical History Medical History Sleep apnea Hypercholesterolemia Hypertension Diabetic neuropathy Diabetes Surgical History Surgical History H/O colonoscopy 08/03/2023 Family History Family History Other Diabetes mellitus Hypertension Renal cancer Social History Social History Smoking status: Never smoker Alcohol intake: never Spiritual care concerns: No Comments At the time of my signature, I reviewed and agree with the nursing past medical, surgical, social, and family history. There is no relevant family history pertinent to the patient complaint. Course Course Emergency Course: Portions of this record may have been created with voice recognition software. Level of Care: Express Care Visit Vital Signs Vital signs: Vital Signs Temperature 36.6 C 01/15/25 17:34 Pulse Rate 77 01/15/25 17:34 Respiratory Rate 16 01/15/25 17:34 Blood Pressure 135/80 01/15/25 17:34 Pulse Oximetry 100 01/15/25 17:34 Temperature 36.6 C 01/15/25 17:34 Pulse Rate 77 01/15/25 17:34 Respiratory Rate 16 01/15/25 17:34 Blood Pressure 135/80 01/15/25 17:34 Pulse Oximetry 100 01/15/25 17:34 Vital signs reviewed MDM - Skin/Abscess/Foreign Bdy MDM Narrative Medical decision making narrative: At the time of visit patient is resting comfortably on the exam table. Patient appears to be nontoxic. labs: Wound culture and viral culture obtained and sent to the lab. Plan: Patient has a penile ulcer to the right glans with two small vesicular like lesion just below ulcer- mild redness. Wound culture and HSV culture obtained and sent to the lab. Will send Supportive measures were discussed with the patient and they voiced understanding discharge instructions and agrees to treatment plan. Return precautions reviewed Differential Diagnosis Differential diagnosis: Likely abscess of skin or subcutaneous tissue, herpes zoster, cellulitis, impetigo and other (Genital herpes, wound ulcer, STI, skin infection) Discharge Plan Discharge Clinical Impression: Penile ulcer Patient Disposition: Home, Self-Care Condition: Stable Instructions: Antibiotic Form Additional Instructions: I suspect you have ulcer to the side of your penis Take acyclovir and doxycycline as prescribed Apply mupirocin cream to the affected area twice daily as prescribed Viral culture and wound culture was sent to the lab. Follow-up with your primary care doctor Patient Language: Syriac Prescriptions: New acyclovir 400 mg tablet 400 mg PO TID 7 Days Qty: 21 0RF doxycycline monohydrate 100 mg capsule 100 mg PO BID 7 Days Qty: 14 0RF mupirocin [Centany] 2 % ointment 1 applic topical BID 7 Days Qty: 22 0RF No Action lisinopril 10 mg tablet 10 mg PO DAILY (DME) complete mutli vitamin 0 .Route .MEDSUPPLY Mounjaro 5 mg/0.5 mL pen injector 5 mg subcut WEEKLY Qty: 6 1RF atorvastatin 40 mg tablet 40 mg PO DAILY 90 Days Qty: 90 3RF (DME) FreeStyle Zach 3 Sensor Device See Rx Instructions .ROUTE .MEDSUPPLY Qty: 6 4RF Rx Instructions: Use to Monitor glucose Synjardy XR 12.5-1,000 mg tablet, IR - ER, biphasic 24hr 2 tablet PO DAILY Qty: 180 1RF Follow-up/Referrals: PHYSICIAN,CHEESE TESTER [Primary Care Provider] - Time of Disposition: 17:55 Quality NIHSS Nursing Documentation ED NIHSS nursing documentation: reviewed/agree
[2025-01-18 10:43] LABS: Source PENILE ULCER
== END 2025-01-15 18:01 | disposition home or self-care (01) ==
PROVIDERS: Emergency Provider Nurse Practitioner Family
DX: N48.5 Ulcer of penis (principal); I10 Essential (primary) hypertension; E11.42 Type 2 diabetes mellitus with diabetic polyneuropathy; Z79.84 Long term (current) use of oral hypoglycemic drugs; E78.00 Pure hypercholesterolemia, unspecified
CPT/HCPCS: 87070; 87075; 87140; 87205; 87255; 99213; G0463